=== PATIENT | female | born 2000 | race Caucasian/White ===

== ENCOUNTER → 2021-10-29 10:55 | Outpatient (CLI) | payer OTHER, SELFPAY | PROVIDERS: Visit Provider Nurse Practitioner | DX: U07.1 COVID-19 (principal) | CPT/HCPCS: C9803; U0003; U0005 ==

== ENCOUNTER 2023-02-12 13:56 | Emergency (ER) | payer BC, SELFPAY ==
[2023-02-12 14:35] VITALS: BP 127/78; PULSE 75; RESP 18; TEMP 37.1; O2SAT 98; BMI 23.9
--- NOTE | 2023-02-12 14:51 | EXP.UTC ---
Discharge Plan Disposition Patient Disposition: Home, Self-Care Condition: Good Prescriptions Prescriptions: New amoxicillin 875 mg tablet 875 mg PO BID Qty: 20 0RF fluticasone propionate [Flonase Allergy Relief] 50 mcg/actuation spray,suspension 1 spray intranasal DAILY Qty: 16 0RF Rx Instructions: administer into each nostril No Action norgestimate-ethinyl estradiol [Tri-Sprintec (28)] 0.18/0.215/0.25 mg-35 mcg (28) tablet 1 tab PO DAILY Referrals Follow up/Referrals: Renee Ellis APRN [Primary Care Provider] - See instructions Activity Restrictions/Add. Instructions Additional Instructions/Restrictions: *Monitor Temp, Over the counter Motrin or Tylenol as directed/as needed Tylenol every 4 hours and Motrin every 6 hours (as long as your family doctor has told you that you can take it) for fever or pain. and straight to ER if unable to lower temp less than 101.0 after medication given *Warm salt water gargles may help to soothe the throat *Throat Lozenges? *Warm fluids like tea with honey may help to soothe the throat? *Sleep elevated *Humidifier/Vaporizer *Flonase 2 sprays in each nostril daily but be aware that it may take 2-3 days before you notice improvement Your throat swab was sent for culture. Those results are typically sent to your primary care. Be sure to follow up in 2-3 days with your family doctor/primary care physician if no improvement so they can review those result and treat if necessary. If you don?t have a primary care doctor, I recommend you get one but in the mean time, you will have to return to a walk in clinic Follow up IMMEDIATELY for new or worsening symptoms or no Noticeable improvement over the next 48-72 hours. 911 for difficulty breathing or swallowing Clinical Impressions Clinical Impression: Otitis media Qualifiers: Otitis media type: unspecified Laterality: left Qualified Code(s): H66.92 - Otitis media, unspecified, left ear Instructions Patient Instructions: Sore Throat Discharge ED Provider: Evelin Stoddard [facility] General Stated complaint: sore throat, ear pain Time Seen by Provider: 02/12/23 14:51 History of Present Illness Provider Complaint: Patient states that she has been having sore throat and pain in both ears States that today she was feeling worse and starting to have some nasal congestion so she came in Related Data Home Medications Medication Instructions Recorded Confirmed norgestimate-ethinyl estradiol 1 tab PO DAILY control 02/12/23 02/12/23 0.18 mg/0.215mg/0.25mg-35 mcg(28)tablet (Tri-Sprintec (28)) Previous Rx's Medication Instructions Recorded amoxicillin 875 mg tablet 875 mg PO BID #20 tabs 02/12/23 fluticasone propionate 50 1 spray intranasal DAILY #16 grams 02/12/23 mcg/actuation nasal spray,suspension (Flonase Allergy Relief) Allergies Allergy/AdvReac Type Severity Reaction Status Date / Time No Known Allergies Allergy Verified 02/12/23 14:55 [facility] Disclaimer: The information contained in this section may have been updated after the patient was seen, as this information can be updated by other users. Social History Smoking Status: Unknown if ever smoked alcohol intake: never current occupational status: employed Travel in the last 8 weeks: None ROS Obtained: Yes All systems reviewed & no additional complaints except as documented and Yes Systems reviewed as appropriate & no additional complaints except as documented Constitutional Constitutional: Reports system reviewed and no additional complaints, except as documented and Reports as per HPI ENT Ears, Nose, Mouth, and Throat: Reports system reviewed and no additional complaints, except as documented, Reports as per HPI, Reports otalgia and Reports sore throat Cardiovascular Cardiovascular: Reports system reviewed and no additional complaints, except as documented and Reports as per HPI R
[2023-02-12 14:57] LABS: UTC Strep Screen (Rapid) Negative (Negative)
[2023-02-12 14:59] VITALS: BP 127/78; PULSE 75; RESP 18; TEMP 37.1; O2SAT 98
== END 2023-02-12 15:13 | disposition home or self-care (01) ==
PROVIDERS: Emergency Provider Nurse Practitioner; PCP Nurse Practitioner Family
DX: H66.92 Otitis media, unspecified, left ear (principal)
CPT/HCPCS: 87880; 99204; 99212; G0463

== ENCOUNTER 2023-02-14 09:17 | Emergency (ER) | payer BC, SELFPAY ==
[2023-02-14 09:20] VITALS: BP 137/88; PULSE 75; RESP 18; TEMP 36.8; O2SAT 100; BMI 23.8
--- NOTE | 2023-02-14 09:29 | EXP.UTC ---
Discharge Plan Disposition Patient Disposition: Home, Self-Care Condition: Good Prescriptions Prescriptions: New moxifloxacin [Vigamox] 0.5 % drops 1 drp ophthalmic (eye) TID 7 Days Qty: 3 0RF Lastacaft Once Daily Relief 0.25 % drops 1 drp ophthalmic (eye) DAILY Qty: 5 0RF No Action norgestimate-ethinyl estradiol [Tri-Sprintec (28)] 0.18/0.215/0.25 mg-35 mcg (28) tablet 1 tab PO DAILY amoxicillin 875 mg tablet 875 mg PO BID Referrals Follow up/Referrals: Renee Ellis APRN [Primary Care Provider] - See instructions Clinical Impressions Clinical Impression: Conjunctivitis Instructions Patient Instructions: DI for Conjunctivitis Discharge ED Provider: Vanessa Jeff [facility] General Stated complaint: RT eye redness w/drainage Time Seen by Provider: 02/14/23 10:08 History of Present Illness Provider Complaint: Right eye redness and drainage last night, then matted together this am. No eye pain or blurred vision but feels irritated. Onset (ago): day(s) (1) Location: eyes Related Data Home Medications Medication Instructions Recorded Confirmed norgestimate-ethinyl estradiol 1 tab PO DAILY control 02/12/23 02/14/23 0.18 mg/0.215mg/0.25mg-35 mcg(28)tablet (Tri-Sprintec (28)) amoxicillin 875 mg tablet 875 mg PO BID EAR INFECTION 02/14/23 02/14/23 Previous Rx's Medication Instructions Recorded alcaftadine 0.25 % eye drops 1 drp ophthalmic (eye) DAILY #5 mL 02/14/23 (Lastacaft Once Daily Relief) moxifloxacin 0.5 % eye drops 1 drp ophthalmic (eye) TID 7 days 02/14/23 (Vigamox) #3 mL Allergies Allergy/AdvReac Type Severity Reaction Status Date / Time No Known Allergies Allergy Verified 02/12/23 14:55 [facility] Disclaimer: The information contained in this section may have been updated after the patient was seen, as this information can be updated by other users. Social History (Updated 02/12/23 @ 15:09 by Evelin Stoddard APRN) Smoking Status: Unknown if ever smoked alcohol intake: never current occupational status: employed Travel in the last 8 weeks: None ROS Obtained: Yes All systems reviewed & no additional complaints except as documented Eyes Eyes: Reports eye discharge Physical Exam General General appearance: alert and in no apparent distress Head Head exam: atraumatic, normocephalic and normal inspection Eye Eye exam: Present normal appearance, PERRL and EOMI Expanded Eye Exam Sclera/Conjunctival: right: injection and exudate ENT ENT exam: Present normal exam, normal oropharynx, mucous membranes moist, TM's normal bilaterally and normal external ear exam Neck Neck exam: Present normal inspection, full ROM and trachea midline; Absent meningismus or lymphadenopathy Chest Chest inspection: Present normal inspection and symmetric chest wall rise; Absent tenderness Respiratory Respiratory exam: Present normal lung sounds bilaterally; Absent respiratory distress Cardiovascular Cardiovascular exam: Present regular rate and normal rhythm; Absent JVD Abdominal Exam Abdominal exam: Present soft and normal bowel sounds; Absent distention, tenderness or guarding Extremities Exam Extremities exam: Present normal inspection, full ROM and normal capillary refill; Absent calf tenderness Back Exam Back exam: Present normal inspection; Absent tenderness Neurological Exam Neurological exam: Present alert and oriented X3 Psychiatric Psychiatric exam: Present normal affect and normal mood Skin Skin exam: Present warm, dry, intact and normal color Lymphatic Lymphatic Findings: no adenopathy Medical Decision Making Bakari Inquiry Pt receiving controlled substance: No
[2023-02-14 10:11] VITALS: BP 137/88; PULSE 75; RESP 18; TEMP 36.8; O2SAT 100
== END 2023-02-14 10:13 | disposition home or self-care (01) ==
PROVIDERS: Emergency Provider Physician Assistant; PCP Nurse Practitioner Family
DX: H10.31 Unspecified acute conjunctivitis, right eye (principal)
CPT/HCPCS: 99212; 99214; G0463

== ENCOUNTER 2025-02-02 13:00 | Outpatient (CLI) | payer OTHER, SELFPAY ==
[2025-02-02 17:37] LABS: Coronavirus 19, PCR Not Detected (NotDetected); Human Rhinovirus Not Detected (NotDetected); Influenza A, PCR Not Detected (NotDetected); Influenza B, PCR Not Detected (NotDetected); Respiratory Syncytial Virus Not Detected (NotDetected)
== END 2025-02-02 23:59 | disposition home or self-care (01) ==
LOC: LAB.DROPOF 02-03 09:15
PROVIDERS: PCP Nurse Practitioner Family; Visit Provider Nurse Practitioner Family
DX: R53.83 Other fatigue (principal); R05.9 Cough, unspecified; H92.09 Otalgia, unspecified ear
CPT/HCPCS: 87631